=== PATIENT | male | born 1960 | race Caucasian/White ===

== ENCOUNTER 2017-07-02 11:24 | Emergency (ER) | payer OTHER ==
[~2017-07-02] VITALS: Ht 167.6 cm; Wt 85.3 kg
[~2017-07-02 11:24] MED LIST: AMOXICILLIN 50500 M1 PO; ATENOLOL 25 MG25 M1 PO; COLACE100 MG PO; CRESTOR10 MG PO; NEXIUM 40 MG CA40 M1 PO; PERCOCET 5-3251 EACH PO
[2017-07-02] MEDS ORDERED: MEDROLDOSEPACK PO (12:24)
[2017-07-02] MEDS ORDERED: ZANAFLEX4 M1 PO (12:24)
[2017-07-02] MEDS ORDERED: NAPROSYN500 MG PO (12:24)
[2017-07-02 12:53] VITALS: BP 179/107
== END 2017-07-02 12:55 | disposition home or self-care (01) ==
LOC: M.ERS 11:24
DX: M54.41 Lumbago with sciatica, right side (principal); Z88.1 Allergy status to other antibiotic agents; Z88.6 Allergy status to analgesic agent